=== PATIENT | male | born 1970 | race Caucasian/White ===

== ENCOUNTER 2020-06-02 17:44 | Observation (INO) ==
[2020-06-02] MEDS ORDERED: ASPIRIN CHEW 324 MG PO STA (18:26)
--- NOTE | 2020-06-02 18:40 | Emergency Department Note ---
History of Present Illness General Chief complaint: Chest Pain Stated complaint: chest pain Time Seen by Provider: 06/02/20 18:09 Source: patient Mode of arrival: ambulatory Limitations: no limitations History of Present Illness This patient comes in after having an episode of chest pain while shoveling snow. This occurred around 7:30 or 8. He happened to have a doctor's appointment today and mentioned it to him and they got an EKG were concerned that he had EKG changes. He said that it lasted briefly in the center of his chest. Only slight pain. He denies that he had any other symptoms with this he did not feel like his heart was racing but it felt like it was pounding harder. He has a bump in the right side of his chest near his breast that he says they have been following with a mammogram. He also has a lymph node that they have been following his right arm pit. He denies any shortness of breath with this he chronically has some shortness of breath there is no pain in the arm neck or back with this. No diaphoresis or nausea or vomiting. He has some chronic pain from arthritis in his right leg which he says has been checked out multiple times and is no worse or different today. No history of similar complaints. Home Medications Medication Instructions Recorded Confirmed Type acetaminophen 1,000 mg PO Q6H PRN 11/06/18 06/02/20 History celecoxib [Celebrex] 200 mg PO DAILY 06/02/20 06/02/20 History chlorthalidone 12.5 mg PO QAM 06/02/20 06/02/20 History Allergies Allergy/AdvReac Type Severity Reaction Status Date / Time ibuprofen Allergy made Verified 06/02/20 18:54 kidneys bleed bandaide AdvReac red Uncoded 06/02/20 18:49 irritated skin Past Med/Surg History Medical History (Updated 06/02/20 @ 22:18 by Griffin Mora MD) Anxiety no meds Hypertension Kidney stones Osteoarthritis Sleep apnea no device--scheduled for a sleep study 11/08/18 Surgical History History of surgical removal of pilonidal cyst History of wisdom tooth extraction Status post debridement of bone spur right heel Family History Father Family history of diabetes mellitus Uncle Family history of diabetes mellitus Other No family history of adverse response to anesthesia Social History Smoking Status: Never smoker Second Hand Exposure: Yes (father smoked); Hx Alcohol Use: Yes Alcohol type: beer, wine and hard liquor Hx Substance Use: No Preferred Language: Botswan[place] Communication Ability: Effective Instructor Painting Required: No Beliefs That Will Affect Care: None Current Living Situation: Spouse Feels Safe at Home: Yes Assistive Devices: Contacts and Glasses Immunizations: Past medical historyosteoarthritis, obstructive sleep apnea. He has kidney stones and also breast mass which they are following. He is being treated for hypertension with medication. He says that his cholesterol was m ildly elevated but is not on medications. Denies any personal cardiac history Social historydoes not smoke. Drinks very occasionally. Denies drug use. He is and lives locally with his . 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 Paternal grandfather he thinks of a heart issue he estimates in his 50s Review of Systems A total of 10 systems reviewed and were otherwise negative Physical Exam Vital Signs Vital Signs - 24 hr 06/02/20 18:02 06/02/20 18:37 06/02/20 19:00 Pulse Rate 91 H 85 Respiratory Rate 18 16 Respiratory Effort / Characteristics Non-Labored Spontaneous Respiratory Depth Normal Respiratory Pattern Regular Blood Pressure 167/99 H 165/108 H Blood Pressure Mean 121 127 Pulse Oximetry 95 95 Oxygen Delivery Method Room Air Room Air Sepsis Recent Fever Within 48 Hours No Sepsis New/Unexplained Change in Mental Status No Sepsis Action Taken by Nursing No Action Required 06/02/20 19:30 06/02/20 19:59 06/02/20 20:00 Pulse Rate 86 85 87 Respiratory Rate 18 14 16 Respiratory Effort / Characteristics Respiratory Depth Respiratory Pattern Blood Pressure 153/96 H 144/98 H 138/93 Blood Pressure Mean 115 113 108 Pulse Oximetry 97 Oxygen Delivery Method Room Air Sepsis Recent Fever Within 48 Hours Sepsis New/Unexplained Change in Mental Status Sepsis Action Taken by Nursing 06/02/20 21:00 06/02/20 21:30 Pulse Rate 86 82 Respiratory Rate 21 18 Respiratory Effort / Characteristics Respiratory Depth Respiratory Pattern Blood Pressure 120/85 123/88 Blood Pressure Mean 96 99 Pulse Oximetry 97 96 Oxygen Delivery Method Sepsis Recent Fever Within 48 Hours Sepsis New/Unexplained Change in Mental Status Sepsis Action Taken by Nursing General: Well developed well nourished not ill-appearing middle-age male who appears in no acute distress, breathing comfortably on room air. Normal speech HEENT: Normal cephalic atraumatic. Pupils are equal round and reactive to light. Sclera anicteric. Extraocular movements are intact. Oropharynx is pink with moist mucous membranes. No swelling of the mouth lips or tongue. Neck: Supple with a midline trachea. No meningeal signs or stiffness, no JVD or bruits. No Stridor. Chest: Clear to auscultation bilaterally. No wheezes or rhonchi. No increased work of breathing. Heart: Regular rate and rhythm without murmurs or gallops. Abdomen: Soft nontender, nondistended without rebound guarding or rigidity. Extremities: No cyanosis clubbing or edema. No calf tenderness or assymetry Spine/Back. Non tender to palpation. No CVA tenderness Skin: Good turgor without rashes. Neurologic exam: Cranial nerves two through 12 are intact. Motor and sensation are intact and symmetrical throughout. Course Administered Medications Discontinued Medications Aspirin (Aspirin Chew 324 Mg) 324 mg PO NOW STA Stop: 06/02/20 18:27 Last Admin: 06/02/20 18:41 Dose: 324 mg Documented by: [id number] Ioversol (Optiray 320 125ml) 120 ml IV ONCE ONE Stop: 06/02/20 19:52 Last Admin: 06/02/20 19:52 Dose: 120 ml Documented by: [id number] Potassium Chloride (Potassium Chloride Crtab 20 Meq Tabcr) 40 meq PO NOW STA Stop: 06/02/20 21:21 Last Admin: 06/02/20 21:35 Dose: 40 meq Documented by: [id number] Cosigned by: [id number] Medical Decision Making Differential Diagnosis Acute coronary syndrome, arrhythmia, musculoskeletal, GI. electrolyte or metabolic abnormality Medical Records Attestation: I reviewed the patient's medical records. Home Medications Current Medication List: was personally reviewed by me Laboratory Data Attestation: I reviewed the patient's lab results. Result diagrams: 06/02/20 16:33 06/02/20 16:33 Lab Results 06/02/20 06/02/20 06/02/20 Range/Units 16:33 16:33 16:33 WBC 6.30 (4.8-10.8) K/uL RBC 4.76 (4.7-6.1) M/uL Hgb 15.2 (14.0-18.0) g/dL Hct 43.0 (42-52) % MCV 90.3 (80-100) fL MCH 31.9 (25-34) pg MCHC 35.3 (32-36) g/dL RDW Std Deviation 41.8 (36.4-46.3) fL RDW Coeff of [place] 12.6 (11.5-14.5) % Plt Count 349 (130-400) K/uL MPV 9.1 (7.4-10.4) fL Immature Gran % (Auto) 0.3 % Neut % (Auto) 43.7 % Lymph % (Auto) 38.7 % [place] % (Auto) 12.1 % Eos % (Auto) 4.6 % Baso % (Auto) 0.6 % Neut # (Auto) 2.75 (1.4-6.5) K/uL Lymph # (Auto) 2.44 (1.2-3.4) K/uL [place] # (Auto) 0.76 H (0.11-0.59) K/uL Eos # (Auto) 0.29 (0-0.5) K/uL Baso # (Auto) 0.04 (0-0.2) K/uL Immature Gran # (Auto) 0.02 (0.00-0.02) K/uL D-Dimer 1420 H* (0-500) ug/L FEU Sodium 139 (136-145) mmol/L Potassium 3.4 L (3.5-5.1) mmol/L Chloride 104 (98-107) mmol/L Carbon Dioxide 29 (21-32) mmol/L Anion Gap 7.0 (3-11) BUN 15 (7-18) mg/dl Creatinine 1.06 (0.6-1.4) mg/dl Est Cr Clr Drug Dosing 143.3 ml/min Est GFR ( Amer) 93.7 Est GFR (Non-Af Amer) 80.9 BUN/Creatinine Ratio 13.8 (10-20) Glucose 96 (70-99) mg/dl Calcium 9.8 (8.5-10.1) mg/dl Total Bilirubin 0.6 (0.2-1) mg/dl AST 47 H (15-37) U/L ALT 54 (12-78) U/L Alkaline Phosphatase 83 (45-117) U/L Troponin I < 0.015 (0-0.045) ng/ml Total Protein 8.4 H (6.4-8.2) gm/dl Albumin 4.2 (3.4-5.0) gm/dl Globulin 4.2 H (2.5-4.0) gm/dl Albumin/Globulin Ratio 1.0 (0.9-2) Lipase 179 (73-393) U/L COVID-19 Eval Order SARS-CoV-2, RNA, NAAT (NEGATIVE) 06/02/20 06/02/20 Range/Units 21:33 21:33 WBC (4.8-10.8) K/uL RBC (4.7-6.1) M/uL Hgb (14.0-18.0) g/dL Hct (42-52) % MCV (80-100) fL MCH (25-34) pg MCHC (32-36) g/dL RDW Std Deviation (36.4-46.3) fL RDW Coeff of [place] (11.5-14.5) % Plt Count (130-400) K/uL MPV (7.4-10.4) fL Immature Gran % (Auto) % Neut % (Auto) % Lymph % (Auto) % [place] % (Auto) % Eos % (Auto) % Baso % (Auto) % Neut # (Auto) (1.4-6.5) K/uL Lymph # (Auto) (1.2-3.4) K/uL [place] # (Auto) (0.11-0.59) K/uL Eos # (Auto) (0-0.5) K/uL Baso # (Auto) (0-0.2) K/uL Immature Gran # (Auto) (0.00-0.02) K/uL D-Dimer (0-500) ug/L FEU Sodium (136-145) mmol/L Potassium (3.5-5.1) mmol/L Chloride (98-107) mmol/L Carbon Dioxide (21-32) mmol/L Anion Gap (3-11) BUN (7-18) mg/dl Creatinine (0.6-1.4) mg/dl Est Cr Clr Drug Dosing ml/min Est GFR ( Amer) Est GFR (Non-Af Amer) BUN/Creatinine Ratio (10-20) Glucose (70-99) mg/dl Calcium (8.5-10.1) mg/dl Total Bilirubin (0.2-1) mg/dl AST (15-37) U/L ALT (12-78) U/L Alkaline Phosphatase (45-117) U/L Troponin I (0-0.045) ng/ml Total Protein (6.4-8.2) gm/dl Albumin (3.4-5.0) gm/dl Globulin (2.5-4.0) gm/dl Albumin/Globulin Ratio (0.9-2) Lipase (73-393) U/L COVID-19 Eval Order Covid19 IDNow atMLAC SARS-CoV-2, RNA, NAAT NEGATIVE (NEGATIVE) Imaging Data Attestation: I personally reviewed and interpreted this imaging study as follows: My Impression: Chest x-rayno acute infiltrate, failure, pneumothorax seen Radiologist's Impression: SINGLE VIEW CHEST CLINICAL HISTORY: Atypical chest pain. FINDINGS: An AP, portable, upright chest radiograph is obtained. No prior studies are available for comparison at the time of dictation. The examination is degraded by portable technique and patient rotation. The cardiomediastinal silhouette is unremarkable. The lungs and pleural spaces are clear. No pneumothorax is seen. The bony thorax is grossly intact. IMPRESSION: No active disease in the chest. CT ANGIOGRAM OF THE CHEST CLINICAL HISTORY: Atypical chest pain. COMPARISON STUDY: Chest x-ray dated 06/02/2020. TECHNIQUE: Following the IV administration of 120 cc of Optiray 320, CT angiogram of the chest was performed from the upper abdomen to the thoracic inlet utilizing the pulmonary embolus protocol. Images are reviewed in the axial, sagittal, and coronal planes. 3-D MIPS images are created and assessed. IV contrast was administered without complication. A dose lowering technique was utilized adhering to the principles of ALARA. CT DOSE: 728.82 mGy.cm FINDINGS: Thyroid: Imaged portions of the thyroid gland are normal in size and attenuation. Thoracic aorta: The thoracic aorta is normal in caliber and demonstrates standard 3-vessel arch anatomy. No dissection is seen. Pulmonary vasculature: The pulmonary trunk is normal in caliber. There are no filling defects identified in main, lobar, or segmental pulmonary branches to suggest pulmonary embolus. Heart: The heart is normal in size and without pericardial effusion. Lungs and pleural spaces: Evaluation of the lung parenchyma is modestly degraded by motion artifact. There is no airspace consolidation or pleural effusion. Minimal secretions are noted in the trachea. There is mild diffuse peribronchial thickening. A 4 mm right lower lobe pulmonary nodule is seen on image #101. A 4 mm right middle lobe pulmonary nodule is seen on image #91, and a 2 mm right middle lobe nodule is seen on image #113. A 3 mm pleural-based nodule at the le ft lung base as seen on image #50, and a 4 mm left lower lobe nodule is seen on image #90. Mediastinum: There is no mediastinal lymphadenopathy. Sara: Clear. Axillae: There is no axillary lymphadenopathy. Upper abdomen: The liver is enlarged and steatotic. There is a small hiatal hernia. Skeletal structures: No lytic or blastic bony lesions are seen. IMPRESSION: 1. There is no evidence of pulmonary embolus in the main, lobar, or segmental pulmonary arteries. 2. There is no airspace consolidation or pleural effusion. 3. Mild diffuse peribronchial thickening suggests bronchitis/reactive airway disease. 4. Scattered pulmonary nodules measuring up to 4 mm are pathologically indeterminant but of low suspicion. These can be followed as per the Fleischner criteria if clinically warranted. See below. 5. Hepatomegaly and hepatic steatosis. ECG Data Attestation: I personally reviewed and interpreted this ECG as follows: Indication: + chest pain Rate (beats per minute): 85 Rhythm: + normal sinus ECG Intervals/blocks: + Normal QRS, + Normal QT and + Normal VT ECG [place]: + Normal ECG ST segments: + T-wave inversions (Nonspecific T waves that are more flattened than previous EKG when they were inverted in the anterolateral) ECG Findings: no PACs and no PVCs Comparison ECG Date: from (Earlier today in the doctor's office) Change: the following changes noted (T waves are no longer inverted but more flattened) MDM Narrative This patient comes in as described above he is asymptomatic at present but had some chest pain while shoveling. His doctor's office was concerned as his EKG did show T wave inversions mostly anteriorly which were apparently new compared to old. We did repeat the EKG here and the T wave inversions for the most part have resolved there more just flattened with an inversion in V3. Multiple blood testing was obtained he was given aspirin 324 mg chewable. Chest x-ray was obtained. He was reassessed frequently. Chest x-ray was clear and did not show congestive heart failure or pneumothorax. His EKG has some nonspecific T wave abnormalities but does actually look better than the one in the office. Troponin is negative. He has no signal electrolyte or metabolic abnormality. His D-dimer was moderately elevated at 1400 so I ordered a CT angiogram PE. I did explain the risk and the benefits of the patient and he freely consented. The CAT scan was obtained and shows no evidence of pulmonary embolism. He has r emained comfortable. There is no airspace consolidation or pleural effusion. There is diffuse peribronchial thickening suggestive of bronchitis/reactive airway disease. He does have some low suspicion pulmonary nodules. Given his EKG changes I do think he needs to be admitted/observed to rule out a cardiac event. He is willing to stay in the hospital. I did discuss case with Dr. Moreland and also ordered Covid testing given that he will be admitted. Covid testing was negative. Continuous cardiac monitoring: An order was placed in the EMR for continuous cardiac monitoring. The patient was noted to be in normal sinus rhythm with a rate of 91. Impression & Plan Chest pain, COVID-19 ruled out by laboratory testing, Acute electrocardiogram changes, Family history of coronary artery disease Discharge Plan Visit Data Chief Complaint: Chest Pain Stated Complaint: chest pain ED Provider: Griffin Mora Discharge Problem: Chest pain, COVID-19 ruled out by laboratory testing, Acute electrocardiogram changes, Family history of coronary artery disease Forms Stand Alone Forms: My [facility] Prescriptions Prescriptions: No Action acetaminophen 500 mg Tablet 1,000 mg PO Q6H PRN (Reason: Pain) RF: 0 celecoxib [Celebrex] 200 mg capsule 200 mg PO DAILY RF: 0 chlorthalidone 25 mg tablet 12.5 mg PO QAM RF: 0 Discharge Problem: Chest pain Qualifiers: Chest pain type: precordial pain Qualified Code(s): R07.2 - Precordial pain
[2020-06-02 18:45] LABS: Basophils # (auto) 0.04 K/uL (0-0.2); Basophils % (auto) 0.6 %; Eosinophils # (auto) 0.29 K/uL (0-0.5); Eosinophils % (auto) 4.6 %; Hemoglobin 15.2 g/dL (14.0-18.0); Immature Granulocytes # (auto) 0.02 K/uL (0.00-0.02); Immature Granulocytes % (auto) 0.3 %; Lymphocytes # (auto) 2.44 K/uL (1.2-3.4); Lymphocytes % (auto) 38.7 %; Mean Corpuscular Hemoglobin 31.9 pg (25-34); Mean Corpuscular Hgb Conc 35.3 g/dL (32-36); Mean Corpuscular Volume 90.3 fL (80-100); Mean Platelet Volume 9.1 fL (7.4-10.4); Monocytes # (auto) 0.76 K/uL (0.11-0.59); Monocytes % (auto) 12.1 %; Neutrophils # (auto) 2.75 K/uL (1.4-6.5); Neutrophils % (auto) 43.7 %; Platelet Count 349 K/uL (130-400); RDW Coefficient of Variation 12.6 % (11.5-14.5); RDW Standard Deviation 41.8 fL (36.4-46.3); Red Blood Count 4.76 M/uL (4.7-6.1)
[2020-06-02 19:05] LABS: Alanine Aminotransferase 54 U/L (12-78); Albumin Level 4.2 gm/dl (3.4-5.0); Aspartate Aminotransferase 47 U/L (15-37); BUN Creatinine Ratio 13.8 (10-20); Blood Urea Nitrogen 15 mg/dl (7-18); Calcium 9.8 mg/dl (8.5-10.1); Carbon Dioxide 29 mmol/L (21-32); Chloride 104 mmol/L (98-107); Creatinine Clr Calc Pharmacy 143.3 ml/min; Est GFR (African American) 93.7; Est GFR (Non-African American) 80.9; Glucose 96 mg/dl (70-99); Lipase 179 U/L (73-393); Potassium 3.4 mmol/L (3.5-5.1); Sodium 139 mmol/L (136-145)
[2020-06-02 19:06] LABS: D Dimer 1420 ug/L FEU (0-500)
--- NOTE | 2020-06-02 19:06 | XRay Report ---
SINGLE VIEW CHEST CLINICAL HISTORY: Atypical chest pain. FINDINGS: An AP, portable, upright chest radiograph is obtained. No prior studies are available for c omparison at the time of dictation. The examination is degraded by portable technique and patient rot ation. The cardiomediastinal silhouette is unremarkable. The lungs and pleural spaces are clear. No pneumothorax is seen. The bony thorax is grossly intact. IMPRESSION: No active disease in the chest. ACT 112: Negative or not required by law. Electronically signed by: Farrukh Guerrero M.D. 06/02/2020 7:04 PM
[2020-06-02 19:10] LABS: Alkaline Phosphatase 83 U/L (45-117); Bilirubin,Total 0.6 mg/dl (0.2-1); Globulin 4.2 gm/dl (2.5-4.0); Total Protein 8.4 gm/dl (6.4-8.2); Troponin I < 0.015 ng/ml (0-0.045)
[2020-06-02] MEDS ORDERED: OPTIRAY 320 125ml IV ONE (19:51)
--- NOTE | 2020-06-02 20:14 | CT Scan Report ---
CT ANGIOGRAM OF THE CHEST CLINICAL HISTORY: Atypical chest pain. COMPARISON STUDY: Chest x-ray dated 06/02/2020. TECHNIQUE: Following the IV administration of 120 cc of Optiray 320, CT angiogram of the chest was pe rformed from the upper abdomen to the thoracic inlet utilizing the pulmonary embolus protocol. Images are reviewed in the axial, sagittal, and coronal planes. 3-D MIPS images are created and assessed. I V contrast was administered without complication. A dose lowering technique was utilized adhering to the principles of ALARA. CT DOSE: 728.82 mGy.cm FINDINGS: Thyroid: Imaged portions of the thyroid gland are normal in size and attenuation. Thoracic aorta: The thoracic aorta is normal in caliber and demonstrates standard 3-vessel arch anato my. No dissection is seen. Pulmonary vasculature: The pulmonary trunk is normal in caliber. There are no filling defects identif ied in main, lobar, or segmental pulmonary branches to suggest pulmonary embolus. Heart: The heart is normal in size and without pericardial effusion. Lungs and pleural spaces: Evaluation of the lung parenchyma is modestly degraded by motion artifact. There is no airspace consolidation or pleural effusion. Minimal secretions are noted in the trachea. There is mild diffuse peribronchial thickening. A 4 mm right lower lobe pulmonary nodule is seen on i mage #101. A 4 mm right middle lobe pulmonary nodule is seen on image #91, and a 2 mm right middle lo be nodule is seen on image #113. A 3 mm pleural-based nodule at the left lung base as seen on image # 50, and a 4 mm left lower lobe nodule is seen on image #90. Mediastinum: There is no mediastinal lymphadenopathy. Sara: Clear. Axillae: There is no axillary lymphadenopathy. Upper abdomen: The liver is enlarged and steatotic. There is a small hiatal hernia. Skeletal structures: No lytic or blastic bony lesions are seen. IMPRESSION: 1. There is no evidence of pulmonary embolus in the main, lobar, or segmental pulmonary arteries. 2. There is no airspace consolidation or pleural effusion. 3. Mild diffuse peribronchial thickening suggests bronchitis/reactive airway disease. 4. Scattered pulmonary nodules measuring up to 4 mm are pathologically indeterminant but of low suspi cion. These can be followed as per the Fleischner criteria if clinically warranted. See below. 5. Hepatomegaly and hepatic steatosis. Please refer to below summary of Fleischner criteria recommendations for follow-up of incidental CT n odules (Cl Ford, Guidelines for management of small pulmonary nodules detected on CT scans: A sta tement from the Fleischner Society, Radiology 237: [id number].) SOLID NODULES Solitary nodule size: <6 mm * low risk patients: no follow-up needed * high risk patients: optional CT at 12 months Solitary nodule size: 6-8 mm * low risk patients: follow-up at 6-12 months, then consider further follow-up at 18-24 months * high risk patients: initial follow-up CT at 6-12 months and then at 18-24 months if no change Solitary nodule size: >8 mm * either low or high risk patients - consider follow-up CT at 3 months, and/or CT-PET, and/or biopsy Multiple nodules size: <6 mm * low risk patients: no routine follow-up * high risk patients: optional CT at 12 months Multiple nodules size: 6-8 mm * low risk patients: follow-up at 3-6 months, then consider further follow-up at 18-24 months * high risk patients: follow-up at 3-6 months, then at 18-24 months if no change Multiple nodules size: >8 mm * low risk patients: follow-up at 3-6 months, then consider further follow-up at 18-24 months * high risk patients: follow-up at 3-6 months, then at 18-24 months if no change Note: newly detected indeterminate nodule in persons 35 years of age or older. * low risk patients: minimal or absent history of smoking and/or other known risk factors * high risk patients: history of smoking or of other known risk factors (e.g. first degree relative with lung cancer, or exposure to asbestos, radon, uranium) * if a nodule up to 8 mm is partly solid or is ground glass further follow-up is required after 24 m onths to exclude possible slow growing adenocarcinoma (RADHA) SUBSOLID NODULES Solitary pure ground-glass nodule * nodule size <6 mm - no CT follow-up required * nodule size >=6 mm - follow-up CT at 6-12 months, then every 2 years until 5 years Solitary part-solid nodule * nodule size <6 mm - no CT follow-up required * nodule size >=6 mm - follow-up CT at 3-6 months. If unchanged, and solid component remains <6 mm, then annual follow-up for 5 years Multiple subsolid nodules * nodule size <6 mm - follow-up CT at 3-6 months, consider further follow-up at 2 and 4 years if sta ble * nodule size >=6 mm - follow-up CT at 3-6 months, subsequent management based on the most suspiciou s nodule(s) ACT 112: Negative or not required by law. Electronically signed by: Farrukh Guerrero M.D. 06/02/2020 8:13 PM
[2020-06-02] MEDS ORDERED: POTASSIUM CHLORIDE CRTAB 20 MEQ TABCR PO STA (21:20)
--- NOTE | 2020-06-02 22:05 | History & Physical Report ---
Date of Service June 02, 2020 Assessment & Plan (1) Chest pain: Musculoskeletal given reproducibility on exam Rule out ACS given risk factors and ischemic changes on outpatient EKG. hypertension, stable Reactive bronchitis on CT, patient wondering if possibly related to perceived high CPAP pressures prediabetes, outpatient hemoglobin A1c of 5.06 November 2019 Hypokalemia secondary diuretic Rx past tobacco abuse OBS PCU Aspirin for CAD prevention until ACS ruled out Follow troponin Cardiology consult in a.m. RE chest pain, abnormal EKG N.p.o. after midnight until patient seen by cardiology Patient requesting for CT results to be relayed to [facility] sleep specialist. Replace potassium, hold home diuretic for now DVT prophylaxis per Lovenox subcu Full code Text document was generated using [employer] voice recognition software. It may contain grammatical or spelling errors. Kindly contact undersigned for clarification of any documentation item in question. History of Present Illness Chief Complaint: Abnormal EKG Primary Care Provider: Doe Golden DO History obtained from patient and records. Medical history significant for hypertension, SAMANTA on CPAP, GERD, prediabetes, past tobacco abuse, mood disorder, urolithiasis. Patient was shoveling snow this morning when he experienced transient substernal tightness without radiation without cough, S OB symptoms. No prior episodes in the past. Patient seen at PCP's office today for possible right axillary node complaint. EKG done after patient mentioned transient substernal pain complaints. EKG showed T wave inversions anteroseptal leads. Patient sent to the ER for evaluation. Medical History as above Family History : DM, heart disease, black lung Personal/Social history : Past tobacco abuse, no EtOH intake, [employer] [facility] [facility] work Allergies Allergy/AdvReac Type Severity Reaction Status Date / Time ibuprofen Allergy made Verified 06/02/20 18:54 kidneys bleed bandaide AdvReac red Uncoded 06/02/20 18:49 irritated skin Home Medications Medication Instructions Recorded Confirmed Type acetaminophen 1,000 mg PO Q6H PRN 11/06/18 06/02/20 History celecoxib [Celebrex] 200 mg PO DAILY 06/02/20 06/02/20 History chlorthalidone 12.5 mg PO QAM 06/02/20 06/02/20 History Past Med/Surg History Medical History (Updated 06/02/20 @ 22:18 by Griffin Mora MD) Anxiety no meds Hypertension Kidney stones Osteoarthritis Sleep apnea no device--scheduled for a sleep study 11/08/18 Surgical History History of surgical removal of pilonidal cyst History of wisdom tooth extraction Status post debridement of bone spur right heel Family History Father Family history of diabetes mellitus Uncle Family history of diabetes mellitus Other No family history of adverse response to anesthesia Social History Smoking Status: Former smoker Second Hand Exposure: No; Hx Alcohol Use: Yes Alcohol type: wine Hx Substance Use: No Preferred Language: Portuguese Communication Ability: Effective Service Aide Required: No Beliefs That Will Affect Care: None Current Living Situation: Spouse Feels Safe at Home: Yes Safety Concerns: Feels Safe At This Time Assistive Devices: Contacts and Glasses Review of Systems Review of Systems: As per HPI, all 10 systems reviewed, all other ROS negative Physical Exam Physical Exam: GENERAL: Slightly uncomfortable, slightly anxious, obese, pleasant, no respiratory distress SKIN: Normal color, warm HEENT: Pray palpebral conjunctivae, no ptosis, dry buccal mucosa NECK : Supple, short neck, no tenderness CHEST : CTA, anterior chest wall tenderness HEART : RRR, no obvious murmurs ABDOMEN: Some distention, nontender EXTREMITIES : No LE swelling/tenderness, no other conspicuous deformities noted NEUROLOGIC : Coherent, no facial asymmetry, no other gross focality Results & Data Results & Data ([facility]) Vital Signs (Past 12 Hours) Vital Signs Pulse Resp BP Pulse Ox 06/02/20 21:30 82 18 123/88 96 06/02/20 21:00 86 21 120/85 97 06/02/20 20:00 87 16 138/93 97 06/02/20 19:59 85 14 144/98 H 06/02/20 19:30 86 18 153/96 H 06/02/20 19:00 85 16 165/108 H 06/02/20 18:37 95 06/02/20 18:02 91 H 18 167/99 H 95 Laboratory Results Laboratory Results WBC 6.30 K/uL (4.8-10.8) 06/02/20 16:33 RBC 4.76 M/uL (4.7-6.1) 06/02/20 16:33 Hgb 15.2 g/dL (14.0-18.0) 06/02/20 16:33 Hct 43.0 % (42-52) 06/02/20 16:33 MCV 90.3 fL (80-100) 06/02/20 16:33 MCH 31.9 pg (25-34) 06/02/20 16:33 MCHC 35.3 g/dL (32-36) 06/02/20 16:33 RDW Std Deviation 41.8 fL (36.4-46.3) 06/02/20 16:33 RDW Coeff of [place] 12.6 % (11.5-14.5) 06/02/20 16: Plt Count 349 K/uL (130-400) 06/02/20 16:33 MPV 9.1 fL (7.4-10.4) 06/02/20 16:33 Immature Gran % (Auto) 0.3 % 06/02/20 16:33 Neut % (Auto) 43.7 % 06/02/20 16:33 Lymph % (Auto) 38.7 % 06/02/20 16:33 [place] % (Auto) 12.1 % 06/02/20 16:33 Eos % (Auto) 4.6 % 06/02/20 16:33 Baso % (Auto) 0.6 % 06/02/20 16:33 Neut # (Auto) 2.75 K/uL (1.4-6.5) 06/02/20 16:33 Lymph # (Auto) 2.44 K/uL (1.2-3.4) 06/02/20 16:33 [place] # (Auto) 0.76 K/uL (0.11-0.59) H 06/02/20 16:33 Eos # (Auto) 0.29 K/uL (0-0.5) 06/02/20 16:33 Baso # (Auto) 0.04 K/uL (0-0.2) 06/02/20 16:33 Immature Gran # (Auto) 0.02 K/uL (0.00-0.02) 06/02/20 16:33 D-Dimer 1420 ug/L FEU (0-500) H* 06/02/20 16:33 Sodium 139 mmol/L (136-145) 06/02/20 16:33 Potassium 3.4 mmol/L (3.5-5.1) L 06/02/20 16:33 Chloride 104 mmol/L (98-107) 06/02/20 16:33 Carbon Dioxide 29 mmol/L (21-32) 06/02/20 16:33 Anion Gap 7.0 (3-11) 06/02/20 16:33 BUN 15 mg/dl (7-18) 06/02/20 16:33 Creatinine 1.06 mg/dl (0.6-1.4) 06/02/20 16:33 Est Cr Clr Drug Dosing 143.3 ml/min 06/02/20 16:33 Est GFR ( Amer) 93.7 06/02/20 16:33 Est GFR (Non-Af Amer) 80.9 06/02/20 16:33 BUN/Creatinine Ratio 13.8 (10-20) 06/02/20 16:33 Glucose 96 mg/dl (70-99) 06/02/20 16:33 Calcium 9.8 mg/dl (8.5-10.1) 06/02/20 16:33 Total Bilirubin 0.6 mg/dl (0.2-1) 06/02/20 16:33 AST 47 U/L (15-37) H 06/02/20 16:33 ALT 54 U/L (12-78) 06/02/20 16:33 Alkaline Phosphatase 83 U/L (45-117) 06/02/20 16:33 Troponin I < 0.015 ng/ml (0-0.045) 06/02/20 16:33 Total Protein 8.4 gm/dl (6.4-8.2) H 06/02/20 16:33 Albumin 4.2 gm/dl (3.4-5.0) 06/02/20 16:33 Globulin 4.2 gm/dl (2.5-4.0) H 06/02/20 16:33 Albumin/Globulin Ratio 1.0 (0.9-2) 06/02/20 16:33 Lipase 179 U/L (73-393) 06/02/20 16:33 COVID-19 Eval Order Covid19 IDNow [facility] 06/02/20 21:[address] chest: 1. There is no evidence of pulmonary embolus in the main, lobar, or segmental pulmonary arteries. 2. There is no airspace consolidation or pleural effusion. 3. Mild diffuse peribronchial thickening suggests bronchitis/reactive airway disease. 4. Scattered pulmonary nodules measuring up to 4 mm are pathologically indeterminant but of low suspicion. These can be followed as per the Fleischner criteria if clinically warranted. See below. 5. Hepatomegaly and hepatic steatosis. EKG as per my interpretation : Rate 90, NSR, normal axis, diffuse T wave abnormalities (1) Chest pain Chest pain type: precordial pain Qualified Code(s): R07.2 - Precordial pain
[2020-06-02 22:21] LABS: Magnesium 2.3 mg/dl (1.8-2.4)
[2020-06-02] MEDS ORDERED: ACETAMINOPHEN 325 MG TAB PO PRN (23:17)
[2020-06-02] MEDS ORDERED: MoRPHine SULFATE 4 MG/ML 1 ML CARP\\VIAL IV PRN (23:17)
[2020-06-02] MEDS ORDERED: PROMETHAZINE HCL 12.5 MG in SODIUM CHLORIDE 0.9% 50 ML IV PRN (23:17)
[2020-06-02] MEDS ORDERED: NITROGLYCERIN SL 0.4 MG/TAB TAB SL PRN (23:17)
[2020-06-02] MEDS ORDERED: LORazepam 0.5 MG/1 ML VIAL IV PRN (23:17)
[2020-06-03] MEDS ORDERED: POTASSIUM CHLORIDE 40 MEQ in SODIUM CHLORIDE 0.9% 1000ML 1,000 ML IV SCH
[2020-06-03 04:55] LABS: Basophils # (auto) 0.02 K/uL (0-0.2); Basophils % (auto) 0.4 %; Eosinophils % (auto) 5.3 %; Hematocrit (blood only) 37.9 % (42-52); Hemoglobin 13.1 g/dL (14.0-18.0); Immature Granulocytes # (auto) 0.02 K/uL (0.00-0.02); Immature Granulocytes % (auto) 0.4 %; Lymphocytes % (auto) 40.4 %; Mean Corpuscular Hemoglobin 31.5 pg (25-34); Mean Corpuscular Hgb Conc 34.6 g/dL (32-36); Mean Corpuscular Volume 91.1 fL (80-100); Mean Platelet Volume 8.7 fL (7.4-10.4); Monocytes % (auto) 10.5 %; Neutrophils # (auto) 2.45 K/uL (1.4-6.5); Platelet Count 282 K/uL (130-400); RDW Coefficient of Variation 12.7 % (11.5-14.5); Red Blood Count 4.16 M/uL (4.7-6.1); White Blood Count 5.69 K/uL (4.8-10.8)
[2020-06-03 05:14] LABS: Partial Thromboplastin Ratio 1.1; Partial Thromboplastin Time 28.2 Seconds (21.0-31.0)
[2020-06-03 05:23] LABS: BUN Creatinine Ratio 15.8 (10-20); Blood Urea Nitrogen 14 mg/dl (7-18); Calcium 8.9 mg/dl (8.5-10.1); Carbon Dioxide 31 mmol/L (21-32); Chloride 109 mmol/L (98-107); Creatinine Clr Calc Pharmacy 127.9 ml/min; Est GFR (African American) 112.7; Est GFR (Non-African American) 97.2; Glucose 94 mg/dl (70-99); Potassium 3.7 mmol/L (3.5-5.1); Sodium 143 mmol/L (136-145)
[2020-06-03 05:28] LABS: Chol HDL Ratio 6; Cholesterol 181 mg/dl (0-200); HDL Cholesterol 31 mg/dl; LDL Cholesterol Calculated 112 mg/dl; Triglycerides 192 mg/dl (0-150); Troponin I < 0.015 ng/ml (0-0.045); VLDL Cholesterol 38 mg/dl
[2020-06-03] MEDS ORDERED: ENOXAPARIN INJ 40 MG/0.4 ML SYR SQ SCH (09:00)
[2020-06-03] MEDS ORDERED: ASPIRIN 81 MG ECTAB PO SCH (09:00)
--- NOTE | 2020-06-03 09:23 | Cardiology Consultation ---
Date of Consultation June 03, 2020 Assessment & Plan (1) Chest pain: Patient referred after noting atypical chest pain sharp jabbing discomfort while shoveling snow. EKG with biphasic anterior T wave changes on routine testing hours later. Evaluation has not revealed any signs of ischemia or injury with normal LV systolic function as well as normal stress testing as above Recommendations: Patient should have close clinical follow-up with primary care physician to address cardiovascular risk factors including obesity, hypertension and dyslipidemia. Add potassium supplement to chlorthalidone Patient report any new symptoms or complaints (2) Acute electrocardiogram changes: Suspect may be hypokalemia induced. Recommendations as above History of Present Illness Reason for Consultation: Chest Pain Requesting Physician: Dr Gamboa Attending Physician: Hellen Gamboa MD History of Present Illness Patient is a 49-year-old male without prior history of cardiac disease with underlying and ongoing medical issues which include 1. Obesity 2. Obstructive sleep apnea on CPAP supplementation 3. Hypertension 4. Dyslipidemia Patient is referred having been admitted last evening after outpatient visit routinely scheduled to evaluate right axillary lymph node. Patient noted at appointment episodes of sharp and retrosternal chest discomfort brief in nature while shoveling snow. No sustained discomfort. No tachypalpitations no syncope. No orthopnea worsening peripheral edema. No prior history of similar symptoms. Chest wall mildly tender to palpation on presentation. He denies history of rheumatic fever scarlet fever renal or hepatic disease other than renal lithiasis. No recent fevers chills or unexplained infections. No bleeding difficulties. No melena medication dysuria hematuria. Notes weight is trended upwards over the past several months due to reduced activities. Continues to use CPAP faithfully EKG done as an outpatient demonstrated biphasic T waves in anterior leads EKG this morning reveals sinus rhythm with occasional ventricular ectopic beats no ST segment abnormalities Allergies Allergy/AdvReac Type Severity Reaction Status Date / Time ibuprofen Allergy made Verified 06/02/20 18:54 kidneys bleed bandaide AdvReac red Uncoded 06/02/20 18:49 irritated skin Home Medications Medication Instructions Recorded Confirmed Type acetaminophen 1,000 mg PO Q6H PRN 11/06/18 06/02/20 History celecoxib [Celebrex] 200 mg PO DAILY 06/02/20 06/02/20 History chlorthalidone 12.5 mg PO QAM 06/02/20 06/02/20 History Patient History Medical History Anxiety no meds Hypertension Kidney stones Osteoarthritis Sleep apnea no device--scheduled for a sleep study 11/08/18 Surgical History History of surgical removal of pilonidal cyst History of wisdom tooth extraction Status post debridement of bone spur right heel Family History Father Family history of diabetes mellitus Uncle Family history of diabetes mellitus Other No family history of adverse response to anesthesia Social History Smoking Status: Former smoker Second Hand Exposure: No; Hx Alcohol Use: Yes Alcohol type: wine Hx Substance Use: No Preferred Language: Kinyarwanda Communication Ability: Effective 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 Beliefs That Will Affect Care: None Current Living Situation: Spouse Feels Safe at Home: Yes Safety Concerns: Feels Safe At This Time Assistive Devices: None Review of Systems Review of Systems: All systems reviewed & are unremarkable except as noted in HPI & below Physical Exam Constitutional: WD/WN, vitals as above + obese; not in distress Eyes: PERRL, conjunctivae normal, anicteric sclerae EOM intact bilaterally ENMT: external ear and nose normal, oropharynx normal Neck: trachea midline, no thyromegaly + thick neck Respiratory: normal respiratory effort, lungs clear to auscultation Cardiovascular: Rate/Rhythm: regular rate and regular rhythm Heart Sounds: normal S1 and normal S2; no gallop and no murmur Palpation: normal PMI Vessels: normal carotid upstroke and radial pulses present; no JVD and no carotid bruit Extremities: no edema Gastrointestinal (Abdomen): normal bowel sounds, soft, nontender, no hepatosplenomegaly Musculoskeletal: no cyanosis or clubbing, extremities motor strength 5/5 Skin: no rashes, warm and dry Neurologic: PERRL, EOMI, accommodation nl, no face palsy, no dysarthria Psychiatric: Orientation: alert and oriented x 3 Affect: + depressed affect Results & Data ([facility]) Vital Signs (Past 12 Hours) Vital Signs Temp Pulse Pulse Resp BP BP Pulse Ox 06/03/20 07:51 36.5 C 79 20 123/86 93 06/03/20 04:00 36.5 C 82 12 129/94 94 06/03/20 00:00 79 16 96 06/02/20 23:26 36.7 C 87 20 139/87 97 06/02/20 23:17 36.7 C 87 20 139/87 97 06/02/20 22:30 80 15 129/81 92 06/02/20 22:00 78 20 132/97 96 06/02/20 21:30 82 18 123/88 96 Pulse Ox 06/03/20 07:51 06/03/20 04:00 06/03/20 00:00 06/02/20 23:26 06/02/20 23:17 97 06/02/20 22:30 06/02/20 22:00 06/02/20 21:30 Laboratory Results Laboratory Results - last 24 hr 06/02/20 06/02/20 06/02/20 16:33 16:33 16:33 WBC 6.30 RBC 4.76 Hgb 15.2 Hct 43.0 MCV 90.3 MCH 31.9 MCHC 35.3 RDW Std Deviation 41.8 RDW Coeff of [place] 12.6 Plt Count 349 MPV 9.1 Immature Gran % (Auto) 0.3 Neut % (Auto) 43.7 Lymph % (Auto) 38.7 [place] % (Auto) 12.1 Eos % (Auto) 4.6 Baso % (Auto) 0.6 Neut # (Auto) 2.75 Lymph # (Auto) 2.44 [place] # (Auto) 0.76 H Eos # (Auto) 0.29 Baso # (Auto) 0.04 Immature Gran # (Auto) 0.02 APTT PTT Ratio D-Dimer 1420 H* Sodium 139 Potassium 3.4 L Chloride 104 Carbon Dioxide 29 Anion Gap 7.0 BUN 15 Creatinine 1.06 Est Cr Clr Drug Dosing 143.3 Est GFR ( Amer) 93.7 Est GFR (Non-Af Amer) 80.9 BUN/Creatinine Ratio 13.8 Glucose 96 Calcium 9.8 Magnesium 2.3 Total Bilirubin 0.6 AST 47 H ALT 54 Alkaline Phosphatase 83 Troponin I < 0.015 Total Protein 8.4 H Albumin 4.2 Globulin 4.2 H Albumin/Globulin Ratio 1.0 Triglycerides Cholesterol LDL Cholesterol, Calc VLDL Cholesterol, Calc HDL Cholesterol Cholesterol/HDL Ratio Lipase 179 Nasal Screen MRSA (PCR) COVID-19 Eval Order SARS-CoV-2, RNA, NAAT 06/02/20 06/02/20 06/02/20 21:33 21:33 23:15 WBC RBC Hgb Hct MCV MCH MCHC RDW Std Deviation RDW Coeff of [place] Plt Count MPV Immature Gran % (Auto) Neut % (Auto) Lymph % (Auto) [place] % (Auto) Eos % (Auto) Baso % (Auto) Neut # (Auto) Lymph # (Auto) [place] # (Auto) Eos # (Auto) Baso # (Auto) Immature Gran # (Auto) APTT PTT Ratio D-Dimer Sodium Potassium Chloride Carbon Dioxide Anion Gap BUN Creatinine Est Cr Clr Drug Dosing Est GFR ( Amer) Est GFR (Non-Af Amer) BUN/Creatinine Ratio Glucose Calcium Magnesium Total Bilirubin AST ALT Alkaline Phosphatase Troponin I Total Protein Albumin Globulin Albumin/Globulin Ratio Triglycerides Cholesterol LDL Cholesterol, Calc VLDL Cholesterol, Calc HDL Cholesterol Cholesterol/HDL Ratio Lipase Nasal Screen MRSA (PCR) Negative COVID-19 Eval Order Covid19 [facility]Now [facility] SARS-CoV-2, RNA, NAAT NEGATIVE 06/03/20 06/03/20 06/03/20 04:41 04:41 04:50 WBC 5.69 RBC 4.16 L Hgb 13.1 L Hct 37.9 L MCV 91.1 MCH 31.5 MCHC 34.6 RDW Std Deviation 42.0 RDW Coeff of [place] 12.7 Plt Count 282 MPV 8.7 Immature Gran % (Auto) 0.4 Neut % (Auto) 43.0 Lymph % (Auto) 40.4 [place] % (Auto) 10.5 Eos % (Auto) 5.3 Baso % (Auto) 0.4 Neut # (Auto) 2.45 Lymph # (Auto) 2.30 [place] # (Auto) 0.60 H Eos # (Auto) 0.30 Baso # (Auto) 0.02 Immature Gran # (Auto) 0.02 APTT 28.2 PTT Ratio 1.1 D-Dimer Sodium 143 Potassium 3.7 Chloride 109 H Carbon Dioxide 31 Anion Gap 3.0 BUN 14 Creatinine 0.91 Est Cr Clr Drug Dosing 127.9 Est GFR ( Amer) 112.7 Est GFR (Non-Af Amer) 97.2 BUN/Creatinine Ratio 15.8 Glucose 94 Calcium 8.9 Magnesium Total Bilirubin AST ALT Alkaline Phosphatase Troponin I < 0.015 Total Protein Albumin Globulin Albumin/Globulin Ratio Triglycerides 192 H Cholesterol 181 LDL Cholesterol, Calc 112 VLDL Cholesterol, Calc 38 HDL Cholesterol 31 Cholesterol/HDL Ratio 6 Lipase Nasal Screen MRSA (PCR) COVID-19 Eval Order SARS-CoV-2, RNA, NAAT Diagnostic Findings Stress echocardiogram 06/03/2020 Patient exercised for 6 minutes and 30 seconds on a standard Harley protocol and achieved greater than 85% age-predicted maximal heart rate without cardiac symptoms. No stress-induced ischemia by EKG or echocardiographic criteria Baseline EKG revealed sinus rhythm with occasional ventricular ectopic beats LV systolic function is normal (1) Chest pain Chest pain type: precordial pain Qualified Code(s): R07.2 - Precordial pain
--- NOTE | 2020-06-03 12:29 | Communication Note ---
Date of Service: June 03, 2020 pt admitted with atypical chest pain -sharp jabbing discomfort on chest wall ( reproducible with palpation ) while shoveling snow yesterday . had minor EKG changes on admission Family hx of CAD : Father had CABG at age 60's /Paternal Grandfather of heart disease in his 50's ) has been symptoms free since admission appreciate input from Cardiology Cardiac stress test today : stress Echo today : negative for stress inducible ischemia EF 60-65% no valvular disease Resting wall motion normal . stress wall motion : appropriate increase in left ventricular systolic function and decrease in cavity size . pt is stable to be discharged home today asked not to take Celecoxib as noted to have increase risk of coronary artery disease with GLORIA-2 inhibitors . can take Tylenol as needed for arthritis pain . patient is asked to take low dose aspirin 81 mg daily for future heart attack and stroke prophylaxis need close follow up with family physician to reduce future risk for CAD - obesity , HTN , dyslipidemia HTN : on chlorthalidone , added potassium supplement transient EKG changes possible due to electrolyte imbalance ( hypokalemia ) pt will be discharged home later today Hospital follow up scheduled with [facility] on 06/09/2020 Hellen Gamboa MD
--- NOTE | 2020-06-03 15:53 | Electrocardiogram Report ---
Test Reason : Blood Pressure : / mmHG Vent. Rate : 085 BPM Atrial Rate : 085 BPM P-R Int : 174 ms QRS Dur : 100 ms QT Int : 428 ms P-R-T Axes : 030 000 004 degrees QTc Int : 509 ms Sinus rhythm with Premature ventricular complexes Prolonged QT Abnormal ECG No previous ECGs available Confirmed by Sukhdeep Barillas ([id number]) on 06/03/2020 3:53:11 PM Referred By: Doe Golden Confirmed By:Sukhdeep Barillas
--- NOTE | 2020-06-03 16:02 | Discharge Summary ---
Date of Service June 03, 2020 Admission HPI Per Admitting Provider History obtained from patient and records. Medical history significant for hypertension, SAMANTA on CPAP, GERD, prediabetes, past tobacco abuse, mood disorder, urolithiasis. Patient was shoveling snow this morning when he experienced transient substernal tightness without radiation without cough, S OB symptoms. No prior episodes in the past. Patient seen at PCP's office today for possible right axillary node complaint. EKG done after patient mentioned transient substernal pain complaints. EKG showed T wave inversions anteroseptal leads. Patient sent to the ER for evaluation. Medical History as above Family History : DM, heart disease, black lung Personal/Social history : Past tobacco abuse, no EtOH intake, [employer] work Principal Diagnosis Chest pain-non cardiac -negative cardiac stress test possible musculoskeletal pain Hypertension Family history for coronary heart disease Discharge Data Allergies Allergy/AdvReac Type Severity Reaction Status Date / Time ibuprofen Allergy made Verified 06/02/20 18:54 kidneys bleed bandaide AdvReac red Uncoded 06/02/20 18:49 irritated skin Consultations 06/02/20 23:17 Consult Cardiology Routine Ordered Studies 06/02/20 19:16 CT angio chest PE protocol Stat Hospital Course (1) Chest pain: pt admitted with atypical chest pain -sharp jabbing discomfort on chest wall ( reproducible with palpation ) while shoveling snow yesterday . had minor EKG changes on admission Family hx of CAD : Father had CABG at age 60's /Paternal Grandfather of heart disease in his 50's ) has been symptoms free since admission appreciate input from Cardiology Cardiac stress test today : stress Echo today : negative for stress inducible ischemia EF 60-65% no valvular disease Resting wall motion normal . stress wall motion : appropriate increase in left ventricular systolic function and decrease in cavity size . pt is stable to be discharged home today asked not to take Celecoxib as noted to have increase risk of coronary artery disease with GLORIA-2 inhibitors . can take Tylenol as needed for arthritis pain . patient is asked to take low dose aspirin 81 mg daily for future heart attack and stroke prophylaxis need close follow up with family physician to reduce future risk for CAD - obesity , HTN , dyslipidemia HTN : on chlorthalidone , added potassium supplement transient EKG changes possible due to electrolyte imbalance ( hypokalemia ) pt will be discharged home later today Hospital follow up scheduled with [facility] on 06/09/2020 Hellen Gamboa MD Total Time Total Time Spent Total Time Spent (In Minutes): 35 mins Total Time Includes: Examination of the Patient, Discharge Planning, Medication Reconciliation and Communication With Other Providers Discharge Plan Discharge Items Patient Disposition: Home - Self-Care Reason For Visit: CP Discharge Diagnosis: Chest pain-non cardiac -negative cardiac stress test possible musculoskeletal pain Hypertension Family history for coronary heart disease Activity: Resume your previous activity Non-emergency contact: Primary Care Provider Call non-emergency contact if: you have any medication questions Follow-up/Referrals: Doe Golden DO [Primary Care Provider] - 06/09/20 1:40 pm (Date & Time 06/09/2020 1:40 PM Provider Ramon Bolton DO Department [facility] ) Diet: Heart Healthy Addtl Attending Provider Instructions: Hospital follow up with Dr Ramon Bolton on 06/09/20 @1: 40pm New Medication: Aspirin 81 mg -1 tablet daily ( take with food ) potassium tablet 20meq -take 1 table daily ( to prevent low potassium level while taking you blood pressure medication -Chlorthalidone) Do not take Celecoxib -can increase risk of heart attack can take Tylenol as needed for pain /fever Heart Attack /Stroke has very strong co-relation with Genetics, you family history of heart disease put's you on higher risk group please follow up with your family physician very closely to reduce your risk factors ( obesity , hypertension , high cholesterol ) for future heart attack /heart failure /stroke - Pending Studies at Discharge: No Stand-Alone Forms: My [employer], Smoking Cessation Medications and DC Order Prescriptions: New aspirin 81 mg Tablet,Delayed Release (Dr/Ec) 81 mg PO QAM 30 Days Qty: 30 RF: 3 potassium chloride 20 mEq tablet extended release 20 meq PO DAILY 30 Days Qty: 30 RF: 3 Continued acetaminophen 500 mg Tablet 1,000 mg PO Q6H PRN (Reason: Pain) RF: 0 chlorthalidone 25 mg tablet 12.5 mg PO QAM RF: 0 Discontinued celecoxib [Celebrex] 200 mg capsule 200 mg PO DAILY RF: 0 Discharge Orders: Discharge Order (Routine); Ordered 06/03/20 Ordered By: Hellen H. Cooper Krames/Other Patient Handouts: Risk Factors for Heart Disease, Your Heart Is at Risk Admission Data Admit Date/Time: 06/02/20 22:18 Attending Provider: Hellen Gamboa Admit Provider: Tony Conrad Primary Care Provider: Doe Golden Other Providers: Fidencio Heath ; Saqib Nichols ; Blaine Cottrell ; Thong Clifton ; Emmanuel Romero ; Segundo Gomez ; Mary Villatoro ; Shanice Nieves ; Leonid Johnston Other Interventions: Discharge Summary Assessment (RN) Last Done: 06/03/20 15:02
== END 2020-06-03 15:16 | disposition home or self-care (01) ==
LOC: 1E 17:44 → ED 17:44 → 1E 22:44

== ENCOUNTER 2021-11-16 02:40 | Observation (INO) ==
[2021-11-16] MEDS ORDERED: SODIUM CHLORIDE 0.9% 500 ML IV STA (02:58)
--- NOTE | 2021-11-16 03:01 | Emergency Department Note ---
Impression & Plan Chest pain ADMIT ED Provider Note HPI: The patient is a 51-year-old male who presents emergency department chief complaint of chest "heaviness" that occurred 2 times earlier this evening. Patient states that several hours prior to arrival he awoke to go to the bathroom, he states that this time he had a sensation of anterior chest "heaviness" he states that he ignored it and went back to bed and it seemed to resolve. Patient states he later awoke and had another episode of this shortly prior to arrival to the ED, he states it lasted several minutes and then reso lved however his second episode was concerning for some pain that radiated to the back of his mid chest. Arrival here to the ED the patient is hypertensive at 153/105, he is otherwise hemodynamically stable and saturating well on room air. 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 Patient states the pain has been intermittent, heaviness in his chest that radiated to his back. Troponin is negative x1 here in the ED, EKG does not show any acute ischemic changes. CT angiography of the chest was ordered and official read is pending. On my reassessment the patient states he still does have some mild chest discomfort and right upper back discomfort. He does have multiple risk factors for ACS including obesity, family history, history of smoking, hypertension, hyperlipidemia, diabetes, I feel that he should be admitted for ACS rule out and likely stress testing. Patient is in agreement to this plan. COVID-19 test is ordered and pending. [facility] hospitalist service was consulted for admission and I did discuss the case with the on-call hospitalist, Dr. Duncan. Patient was admitted in stable condition. Diagnosis: 1. Chest pain, acute 2. Hypertension 3. History of hyperlipidemia 4. History of diabetes 5. History of tobacco abuse 6. Obesity 7. Family history of coronary artery disease Disposition: Admission Segundo Encinas DO Emergency Medicine Past Med/Surg History Medical History (Updated 11/16/21 @ 05:10 by Segundo Encinas DO) Anxiety no meds Hypertension Kidney stones Osteoarthritis Sleep apnea no device--scheduled for a sleep study 11/08/18 Surgical History History of surgical removal of pilonidal cyst History of wisdom tooth extraction Status post debridement of bone spur right heel Family History Father Family history of diabetes mellitus Uncle Family history of diabetes mellitus Other No family history of adverse response to anesthesia Social History Smoking Status: Former smoker Second Hand Exposure: No; Hx Alcohol Use: Yes Alcohol type: wine Hx Substance Use: No Preferred Language: Yakut Communication Ability: Effective Scheduling Administrator Required: No Beliefs That Will Affect Care: None Current Living Situation: Spouse Feels Safe at Home: Yes Assistive Devices: None Allergies Allergies Allergy/AdvReac Type Severity Reaction Status Date / Time ibuprofen Allergy made Verified 06/02/20 18:54 kidneys bleed bandaide AdvReac red Uncoded 06/02/20 18:49 irritated skin Home Meds Home Medications Medication Instructions Recorded Confirmed acetaminophen 500 mg tablet 1,000 mg PO Q6H PRN Pain 11/06/18 06/02/20 chlorthalidone 25 mg tablet 12.5 mg PO QAM 06/02/20 06/02/20 Previous Rx's Medication Instructions Recorded aspirin 81 mg tablet,delayed 81 mg PO QAM 30 days #30 tabs 06/03/20 release potassium chloride 20 mEq 20 meq PO DAILY 30 days #30 tabs 06/03/20 tablet,extended release Results & Data (ED) Vital Signs Vital Signs - 24 hr 11/16/21 02:44 11/16/21 03:08 11/16/21 03:02 Temperature 36.5 C Temperature Source Temporal Artery Scan Pulse Rate 75 73 Respiratory Rate 18 18 Respiratory Effort / Characteristics Non-Labored Spontaneous Respiratory Depth Normal Blood Pressure 153/105 H 146/93 H Blood Pressure Mean 121 110 Pulse Oximetry 98 96 96 Oxygen Delivery Method Room Air Sepsis New/Unexplained Change in Mental Status N/A Sepsis Action Taken by Nursing No Action Required 11/16/21 03:30 11/16/21 04:00 Temperature Temperature Source Pulse Rate 71 71 Respiratory Rate 20 18 Respiratory Effort / Characteristics Respiratory Depth Blood Pressure 147/104 H 149/101 H Blood Pressure Mean 118 117 Pulse Oximetry 99 100 Oxygen Delivery Method Sepsis New/Unexplained Change in Mental Status Sepsis Action Taken by Nursing Laboratory Data Result diagrams: 11/16/21 03:00 11/16/21 03:00 Lab Results 11/16/21 11/16/21 11/16/21 Range/Units 03:00 03:00 03:00 WBC 6.89 (4.8-10.8) K/ul RBC 4.34 L (4.63-6.08) M/uL Hgb 13.2 L (14.0-18.0) g/dl Hct 39.6 L (40.1-51.0) % MCV 91.2 (80.0-100.0) fL MCH 30.4 (25.0-34.0) pg MCHC 33.3 (32.0-36.0) g/dL RDW Std Deviation 40.4 (36.4-46.3) fL RDW Coeff of Shelby 12.1 (11.5-14.5) % Plt Count 262 (130-400) K/uL MPV 8.6 L (9.4-12.4) fL Immature Gran % (Auto) 0.6 % Neut % (Auto) 35.6 % Lymph % (Auto) 48.6 % Whitman % (Auto) 10.7 % Eos % (Auto) 4.1 % Baso % (Auto) 0.4 % Neut # (Auto) 2.45 (1.4-6.5) K/uL Lymph # (Auto) 3.35 (1.2-3.4) K/uL Whitman # (Auto) 0.74 (0.24-0.82) K/uL Eos # (Auto) 0.28 (0-0.50) K/uL Baso # (Auto) 0.03 (0-0.2) K/uL Immature Gran # (Auto) 0.04 H (0.00-0.02) K/uL PT 11.3 (9.0-12.0) Seconds INR 1.1 (0.9-1.1) APTT 28.9 (21.0-31.0) Seconds PTT Ratio 1.1 Sodium 139 (136-145) mmol/L Potassium 4.1 (3.5-5.1) mmol/L Chloride 107 (98-107) mmol/L Carbon Dioxide 28 (21-32) mmol/L Anion Gap 4 (3-11) BUN 16 (6-23) mg/dl Creatinine 0.94 (0.6-1.4) mg/dl Est Cr Clr Drug Dosing 116.6 ml/min Est GFR ( Amer) 106.9 ml/min Est GFR (Non-Af Amer) 92.2 ml/min BUN/Creatinine Ratio 17.0 (10-20) Glucose 88 (70-99(Fasting)) mg/dl Calcium 9.0 (8.5-10.1) mg/dl Total Bilirubin 0.5 (0.2-1.0) mg/dl AST 24 (13-39) U/L ALT 19 (7-52) U/L Alkaline Phosphatase 77 (34-104) U/L Troponin I High Sens 3.5 (0-20) pg/ml Total Protein 7.1 (6.0-8.3) gm/dl Albumin 4.1 (3.4-5.0) gm/dl Globulin 3.0 (2.5-4.0) gm/dl Albumin/Globulin Ratio 1.4 (0.9-2) Lipase 21 (11-82) U/L / Range/Units 04:30 WBC (4.8-10.8) K/ul RBC (4.63-6.08) M/uL Hgb (14.0-18.0) g/dl Hct (40.1-51.0) % MCV (80.0-100.0) fL MCH (25.0-34.0) pg MCHC (32.0-36.0) g/dL RDW Std Deviation (36.4-46.3) fL RDW Coeff of Shelby (11.5-14.5) % Plt Count (130-400) K/uL MPV (9.4-12.4) fL Immature Gran % (Auto) % Neut % (Auto) % Lymph % (Auto) % Whitman % (Auto) % Eos % (Auto) % Baso % (Auto) % Neut # (Auto) (1.4-6.5) K/uL Lymph # (Auto) (1.2-3.4) K/uL Whitman # (Auto) (0.24-0.82) K/uL Eos # (Auto) (0-0.50) K/uL Baso # (Auto) (0-0.2) K/uL Immature Gran # (Auto) (0.00-0.02) K/uL PT (9.0-12.0) Seconds INR (0.9-1.1) APTT (21.0-31.0) Seconds PTT Ratio Sodium (136-145) mmol/L Potassium (3.5-5.1) mmol/L Chloride (98-107) mmol/L Carbon Dioxide (21-32) mmol/L Anion Gap (3-11) BUN (6-23) mg/dl Creatinine (0.6-1.4) mg/dl Est Cr Clr Drug Dosing ml/min Est GFR ( Amer) ml/min Est GFR (Non-Af Amer) ml/min BUN/Creatinine Ratio (10-20) Glucose (70-99(Fasting)) mg/dl Calcium (8.5-10.1) mg/dl Total Bilirubin (0.2-1.0) mg/dl AST (13-39) U/L ALT (7-52) U/L Alkaline Phosphatase (34-104) U/L Troponin I High Sens 5.1 (0-20) pg/ml Total Protein (6.0-8.3) gm/dl Albumin (3.4-5.0) gm/dl Globulin (2.5-4.0) gm/dl Albumin/Globulin Ratio (0.9-2) Lipase (11-82) U/L Administered Medications Discontinued Medications Aspirin (Aspirin Chew 324 Mg) 324 mg PO NOW STA Stop: 11/16/21 05:09 Last Admin: 11/16/21 05:14 Dose: 324 mg Documented By: ERNIE Sodium Chloride (Nss) 500 mls @ 999 mls/hr IV .Q31M STA Stop: 11/16/21 03:28 Last Infusion: 11/16/21 03:35 Dose: 0 mls/hr Documented By: Admin: 11/16/21 03:06 Dose: 999 mls/hr Documented By: RISHABH Ioversol (Optiray 320 125ml) 125 ml IV ONCE ONE Stop: 11/16/21 03:59 Last Admin: 11/16/21 03:59 Dose: 110 ml Documented By: RAO Discharge Plan Visit Data Chief Complaint: Chest Pain Stated Complaint: CHEST PAIN,EARS RINGING,BACK PAIN,CHEST HEAVYNESS ED Provider: Segundo Encinas Discharge Problem: Chest pain Forms Stand Alone Forms: [facility] Prescriptions Prescriptions: No Action acetaminophen 500 mg Tablet 1,000 mg PO Q6H PRN (Reason: Pain) chlorthalidone 25 mg tablet 12.5 mg PO QAM aspirin 81 mg Tablet,Delayed Release (Dr/Ec) 81 mg PO QAM 30 Days Qty: 30 3RF potassium chloride 20 mEq tablet extended release 20 meq PO DAILY 30 Days Qty: 30 3RF Referrals Referrals: Doe Goledn DO [Outside Practitioners] - : Chest pain Qualifiers: Chest pain type: unspecified Qualified Code(s): R07.9 - Chest pain, unspecified
[2021-11-16 03:12] LABS: Basophils # (auto) 0.03 K/uL (0-0.2); Basophils % (auto) 0.4 %; Eosinophils # (auto) 0.28 K/uL (0-0.50); Eosinophils % (auto) 4.1 %; Hematocrit (blood only) 39.6 % (40.1-51.0); Hemoglobin 13.2 g/dl (14.0-18.0); Immature Granulocytes # (auto) 0.04 K/uL (0.00-0.02); Immature Granulocytes % (auto) 0.6 %; Lymphocytes # (auto) 3.35 K/uL (1.2-3.4); Lymphocytes % (auto) 48.6 %; Mean Corpuscular Hemoglobin 30.4 pg (25.0-34.0); Mean Corpuscular Hgb Conc 33.3 g/dL (32.0-36.0); Mean Corpuscular Volume 91.2 fL (80.0-100.0); Mean Platelet Volume 8.6 fL (9.4-12.4); Monocytes # (auto) 0.74 K/uL (0.24-0.82); Monocytes % (auto) 10.7 %; Neutrophils # (auto) 2.45 K/uL (1.4-6.5); Neutrophils % (auto) 35.6 %; Platelet Count 262 K/uL (130-400); RDW Coefficient of Variation 12.1 % (11.5-14.5); RDW Standard Deviation 40.4 fL (36.4-46.3); Red Blood Count 4.34 M/uL (4.63-6.08); White Blood Count 6.89 K/ul (4.8-10.8)
[2021-11-16 03:27] LABS: INR 1.1 (0.9-1.1); Partial Thromboplastin Ratio 1.1; Partial Thromboplastin Time 28.9 Seconds (21.0-31.0); Prothrombin Time 11.3 Seconds (9.0-12.0)
[2021-11-16 03:32] LABS: Albumin Globulin Ratio 1.4 (0.9-2); Albumin Level 4.1 gm/dl (3.4-5.0); Bilirubin,Total 0.5 mg/dl (0.2-1.0); Creatinine Clr Calc Pharmacy 116.6 ml/min; Est GFR (African American) 106.9 ml/min; Est GFR (Non-African American) 92.2 ml/min; Potassium 4.1 mmol/L (3.5-5.1); Total Protein 7.1 gm/dl (6.0-8.3)
[2021-11-16 03:36] LABS: Troponin I High Sensitivity 3.5 pg/ml (0-20)
[2021-11-16] MEDS ORDERED: OPTIRAY 320 125ml IV ONE (03:58)
[2021-11-16] MEDS ORDERED: ASPIRIN CHEW 324 MG PO STA (05:08)
--- NOTE | 2021-11-16 07:14 | CT Scan Report ---
CT angio chest PE protocol CLINICAL HISTORY: Chest Pain, eval for PE TECHNIQUE: Multidetector row helical CT of the chest was performed with angiographic protocol. Palomino l and sagittal reformations were obtained. Coronal and sagittal MIPS were obtained from the axial christopher a set and were submitted for review. Automated dose lowering techniques and/or adjustment according to patient size were utilized for this exam. CT DOSE: 786.17 mGy.cm Comparison: Comparison is made to CTA chest 06/02/2020 FINDINGS: Lungs and pleura: Multiple stable nodules are seen measuring up to 4 mm in the right lower lobe (seri es 4 image 145). Atelectasis is noted. Heart and pericardium: Heart size is normal. No pericardial effusion. Vessels: No evidence of pulmonary embolism. Mediastinum and roly: Subcentimeter lymph nodes are seen. Chest wall and lower neck: Unremarkable. Abdomen: A right hepatic cyst measures 6 mm. Bones: Degenerative changes in the thoracic spine. IMPRESSION: No evidence of pulmonary embolism. Stable tiny pulmonary nodules as above. According to Heather solorio, no follow-up is required in low risk patients, in high-risk patients, a 12 month follow-up CT can be optionally performed. ACT 112: Negative or not required by law. Electronically signed by: Aaron Rodriguez M.D. 11/16/2021 7:12 AM
[2021-11-16] MEDS ORDERED: ACETAMINOPHEN 325 MG TAB PO PRN (08:10)
[2021-11-16] MEDS ORDERED: NITROGLYCERIN SL 0.4 MG/TAB TAB SL PRN (08:10)
--- NOTE | 2021-11-16 08:33 | Cardiology Consultation ---
Date of Consultation November 16, 2021 Assessment & Plan (1) Chest pain: (2) Family history of coronary artery disease: (3) Hypertension: (4) SAMANTA (obstructive sleep apnea): (5) Family history of premature coronary artery disease: (6) Dyslipidemia: (7) Prediabetes: Plan Atypical chest discomfort EKG actually improved compared to previous initial trop negative resting images show normal wall motion stress testing was nonischemic without reproduction of chest discomfort no cardiac source for chest discomfort found no further cardiac testing necessary recommend f/u with pcp for further eval ok to d/c to home from cardiac standpoint History of Present Illness Reason for Consultation: chest pain Requesting Physician: Dr. Brooks Attending Physician: Asmita Brooks DO History of Present Illness Mr. Bernstein is a 51 yo male who presented to [facility] ED with complaints of chest discomfort. He states that he went to bed feeling well but awoke in the middle of the night with chest discomfort. He described it as a heaviness across his precordium. He did fall asleep without his CPAP. Denies any associated symptoms. Resolved with asa in ED. Currently without complaint at rest. States that this discomfort is different than previous episode. PMHX: 1. Family history of early CAD 2. Dyslipidemia with an estimated 10 year ASCVD risk of 4.3% (low) 3. HTN - controlled 4. Prediabetes 5. Former tobacco abuse 6. Obesity with SAMANTA - tolerating CPAP Allergies Allergy/AdvReac Type Severity Reaction Status Date / Time ibuprofen Allergy made Verified 06/02/20 18:54 kidneys bleed bandaide AdvReac red Uncoded 06/02/20 18:49 irritated skin Home Medications Medication Instructions Recorded Confirmed Type aspirin 81 mg tablet,delayed 81 mg PO QAM 30 days #30 tabs 06/03/20 11/16/21 Rx release atorvastatin 20 mg tablet 20 mg PO QAM 11/16/21 11/16/21 History dulaglutide 1.5 mg/0.5 mL 1.5 mg subcut WK 11/16/21 11/16/21 History subcutaneous pen injector (Trulicity) losartan 50 mg tablet 50 mg PO QAM 11/16/21 11/16/21 History Patient History Medical History (Updated 11/16/21 @ 08:33 by Fidencio Heath DO) Anxiety no meds Hypertension Kidney stones Osteoarthritis Sleep apnea no device--scheduled for a sleep study 11/08/18 Surgical History History of surgical removal of pilonidal cyst History of wisdom tooth extraction Status post debridement of bone spur right heel Family History Father Family history of diabetes mellitus Uncle Family history of diabetes mellitus Other No family history of adverse response to anesthesia Social History Smoking Status: Former smoker Second Hand Exposure: No; Do You Dip or Chew Tobacco: No; Tobacco Cessation Education Requested by Patient: No Hx Alcohol Use: No Hx Substance Use: No Preferred Language: Tajik Communication Ability: Effective Remotely Piloted Vehicle Controller Required: No Beliefs That Will Affect Care: None Current Living Situation: Spouse Other Information That Helps Us Care for You: No Feels Safe at Home: Yes Safety Concerns: Feels Safe At This Time Assistive Devices: CPAP and Glasses Review of Systems Review of Systems: All systems reviewed & are unremarkable except as noted in HPI & below Physical Exam Physical Exam: General: Awake, alert and oriented x 3. No acute distress. HEENT: Normocephalic, atraumatic. Pupils equal, round and reactive to light and accommodation. Extraocular muscles are intact. Anicteric sclera. Moist mucous membranes. Neck: No JVD. No bruit. Cardiovascular: Regular. Positive S-4. Normal S-1 and S-2. No S-3. No murmurs or rubs. Pulmonary: Clear to auscultation B/L. No rales, rhonchi or wheezing Abdomen: Bowel sounds x 4, soft. No rebound, guarding or tenderness. No organomegaly. Extremities: No clubbing, cyanosis or edema. +2 pedal pulses bilaterally. Skin: Warm and dry. Results & Data ([facility]) Vital Signs (Past 12 Hours) Vital Signs Temp Pulse Resp BP Pulse Ox O2 Del Method 11/16/21 08:11 68 18 124/93 96 Room Air 11/16/21 08:00 68 18 124/93 96 11/16/21 07:30 67 19 133/101 H 95 11/16/21 07:00 67 17 123/91 95 07/19/22 06:30 69 16 140/97 97 11/16/21 06:00 69 16 136/94 95 11/16/21 05:30 67 18 144/92 H 97 11/16/21 04:30 73 16 146/95 H 96 11/16/21 04:00 71 18 149/101 H 100 11/16/21 03:30 71 20 147/104 H 99 11/16/21 03:02 73 18 146/93 H 96 11/16/21 03:08 96 11/16/21 02:44 36.5 C 75 18 153/105 H 98 Room Air (1) Chest pain Chest pain type: unspecified Qualified Code(s): R07.9 - Chest pain, unspecified
[2021-11-16] MEDS ORDERED: LOSARTAN POTASSIUM 50 MG TAB PO SCH (09:00)
[2021-11-16] MEDS ORDERED: ATORVASTATIN 20 MG TAB PO SCH (09:00)
[2021-11-16 09:10] LABS: Estimated Average Glucose 117 mg/dl; Hemoglobin A1C 5.7 % (4.5-5.6)
--- NOTE | 2021-11-16 09:11 | History and Physical Report ---
DATE OF ADMISSION: 11/16/2021. CHIEF COMPLAINT: Chest pain. HISTORY OF PRESENT ILLNESS: This 51-year-old male with past medical history significant for hypertension, diabetes, obstructive sleep apnea, obesity, GERD, history of osteoarthritis, subscapular right shoulder tendinitis, presents with chest pain. The patient says around 10:00 p.m. last night, he had chest discomfort, heavy feeling about 3-4/10 in severity. He went to sleep, but again he woke up around 2:00 a.m. with a similar kind of chest heaviness and he tried to stretch when he started having back pain and also right shoulder , this prompted him to come to the ER. In ER initial workup is unremarkable. Currently, resting comfortably, hemodynamically stable. Still having mild chest discomfort. Denies any headache, no dizziness, no blurred visions, no runny nose. He has some ringing noise in ears. No sore throat. No cough, no fevers. No difficulty swallowing. No nausea, no abdominal pain. Normal bowel and bladder movements. Otherwise, he was ambulating okay before all this happened. The patient says his Trulicity was recently increased last Monday since then he is having loss of appetite and not feeling good and he is attributing his symptoms could be from that. ALLERGIES: IBUPROFEN, BAND-AID. PAST MEDICAL HISTORY: As mentioned above. PAST SURGICAL HISTORY: Diagnostic colonoscopy. MEDICATIONS: The patient is on aspirin 81 mg p.o. daily, atorvastatin 20 mg p.o. daily, Trulicity 1.5 mg subcutaneous weekly, losartan 50 mg p.o. daily. FAMILY HISTORY: Significant for mother has arthritis; father has diabetes, [place]; brother has Parkinson's disease; sister has diabetes. SOCIAL HISTORY: . Quit smoking 2001. Smoked half pack a day for 13 years. No alcohol use. No drug use. REVIEW OF SYSTEMS: As per HPI. Rest of review of systems is negative. PHYSICAL EXAMINATION: GENERAL: The patient is obese, not in acute distress. VITAL SIGNS: Temperature 36.5, pulse 67, respiratory rate 18, blood pressure 144/92, oxygen 97% on room air. HEENT: Pupils equal, round and reactive to light. Oral mucosa moist. NECK: No JVD. No neck masses. CARDIOVASCULAR: S1 and S2 heard. Regular rate and rhythm. No murmur, no gallop. RESPIRATORY SYSTEM: Normal AP diameter. No accessory muscle use. No wheezing, no crackles. ABDOMEN: Soft, bowel sounds present, nontender, no distention. CENTRAL NERVOUS SYSTEM: Alert and oriented. Speech is clear. No facial droop. Obeys simple commands. Moves extremities. EXTREMITIES: No edema, no erythema. LABORATORY DATA: WBC 6.8, hemoglobin 13.2, hematocrit 39.6, platelets 262. PT 11.3, INR 1.1, APTT 28.9. Sodium 139, potassium 4.1, chloride 107, bicarbonate 28, BUN 16, creatinine 0.9, serum glucose of 88, calcium 9, total bilirubin 0.5, AST 24, ALT 19, alkaline phosphatase 77. Troponin I high sensitivity 5.1, lipase 21. IMAGING DATA: CT of the chest results are pending. EKG: Initial EKG when he came in had poor quality interpretation showed accelerated junctional rhythm rate of 70, nonspecific T-wave abnormality. Repeat EKG showed normal sinus rhythm at a rate of 73, no acute ST changes seen. ASSESSMENT AND PLAN: This is a 51-year-old male who presents with chest pain. 1. Chest pain: Rule out acute coronary syndrome. Risk factors of diabetes, high blood pressure, high cholesterol, sleep apnea, obesity, family history. Initial troponin unremarkable.. Initial EKG showed junctional rhythm (poor quality)repeat ekg ok. We will follow serial cardiac enzymes, repeat EKG, echocardiogram. Keep n.p.o. and consult Cardiology in the a.m. Monitor in the tele floor. 2. Diabetes. The patient is on Trulicity. We will place on sliding scale. Follow HbA1c follow the blood sugars. 3. Hyperlipidemia. Continue statin. 3. Hypertension. Continue losartan. 4. Obesity. Needs counseling. 5. Sleep apnea. CPAP at bedtime. 6. Deep venous thrombosis prophylaxis: Sequential compression devices. DISPOSITION: Closely observe in med tele. PT/OT prior to discharge. Social service to help with discharge planning. Level 1 full code. Job ID: [id number] [facility]
[2021-11-16] MEDS ORDERED: INSULIN ASPART PER UNIT SC SCH ×2 (12:00→16:30)
--- NOTE | 2021-11-16 17:11 | Electrocardiogram Report ---
Test Reason : Blood Pressure : / mmHG Vent. Rate : 073 BPM Atrial Rate : 073 BPM P-R Int : 188 ms QRS Dur : 104 ms QT Int : 412 ms P-R-T Axes : 056 011 037 degrees QTc Int : 453 ms Normal sinus rhythm Normal ECG When compared with ECG of 16-NOV-2021 02:52, (unconfirmed) No significant change Confirmed by Sukhdeep Barillas ([id number]) on 11/16/2021 5:11:14 PM Referred By: Thong Clifton Confirmed By:Sukhdeep Barillas
[2021-11-17] MEDS ORDERED: ASPIRIN 81 MG ECTAB PO SCH (09:00)
--- NOTE | 2021-11-20 12:01 | Discharge Summary ---
Date of Service 11/16/21 Admission HPI Per Admitting Provider HISTORY OF PRESENT ILLNESS: This 51-year-old male with past medical history significant for hypertension, diabetes, obstructive sleep apnea, obesity, GERD, history of osteoarthritis, subscapular right shoulder tendinitis, presents with chest pain. The patient says around 10:00 p.m. last night, he had chest discomfort, heavy feeling about 3-4/10 in severity. He went to sleep, but again he woke up around 2:00 a.m. with a similar kind of chest heaviness and he tried to stretch when he started having back pain and also right shoulder , this prompted him to come to the ER. In ER initial workup is unremarkable. Currently, resting comfortably, hemodynamically stable. Still having mild chest discomfort. Denies any headache, no dizziness, no blurred visions, no runny nose. He has some ringing noise in ears. No sore throat. No cough, no fevers. No difficulty swallowing. No nausea, no abdominal pain. Normal bowel and bladder movements. Otherwise, he was ambulating okay before all this happened. The patient says his Trulicity was recently increased last Monday since then he is having loss of appetite and not feeling good and he is attributing his symptoms could be from that. Admission Exam Per Admitting Provider PHYSICAL EXAMINATION: GENERAL: The patient is obese, not in acute distress. VITAL SIGNS: Temperature 36.5, pulse 67, respiratory rate 18, blood pressure 144/92, oxygen 97% on room air. HEENT: Pupils equal, round and reactive to light. Oral mucosa moist. NECK: No JVD. No neck masses. CARDIOVASCULAR: S1 and S2 heard. Regular rate and rhythm. No murmur, no gallop. RESPIRATORY SYSTEM: Normal AP diameter. No accessory muscle use. No wheezing, no crackles. ABDOMEN: Soft, bowel sounds present, nontender, no distention. CENTRAL NERVOUS SYSTEM: Alert and oriented. Speech is clear. No facial droop. Obeys simple commands. Moves extremities. EXTREMITIES: No edema, no erythema. Principal Diagnosis chest pain Discharge Exam CONSTITUTIONAL: WNWD, vitals as above, generally well-appearing, NAD EYES: normal conjunctivae, no scleral icterus, ENT: external ear and nose normal, MMM NECK: trachea midline, RESPIRATORY: clear to auscultation bilaterally, no crackles, rales or wheezes, normal respiratory effort CARDIOVASCULAR: regular rate and rhythm, S1 and 2 heard without murmurs, gallops or rubs, no JVD, no peripheral edema, CHEST: inspection of chest was normal GASTROINTESTINAL: soft, nontender, ND, no guarding MUSCULOSKELETAL: strength 5/5 throughout, head is normocephalic and atraumatic SKIN: warm and dry, NEUROLOGIC: CN 2-12 grossly intact, no sensory deficit, normal cognition, normal speech, no tremor PSYCHIATRIC: alert cooperative and oriented to person, place and time. Discharge Data Allergies Allergy/AdvReac Type Severity Reaction Status Date / Time ibuprofen Allergy made Verified 06/02/20 18:54 kidneys bleed bandaide AdvReac red Uncoded 06/02/20 18:49 irritated skin Consultations 11/16/21 05:16 ED Decision to Admit Stat 11/16/21 08:10 Consult Cardiology Routine Ordered Studies 11/16/21 02:58 CT angio chest PE protocol Urgent Hospital Course (1) Chest pain: Plan 51-year-old man was admitted for atypical chest discomfort. EKG was nonischemic initial troponin was negative followed by serial negative troponins overnight. Resting images revealed normal wall motion and cardiac stress testing was nonischemic without reproduction of chest discomfort. There was no cardiac source identified for chest discomfort and no further cardiac testing is necessary. He was discharged in stable condition with close primary care follow-up recommended in order to continue to investigate his cause of chest pain if it recurs. Total Time Total Time Spent Total Time Spent (In Minutes): 60 Discharge Plan Discharge Items Patient Disposition: Home - Self-Care Reason For Visit: CHEST PAIN Discharge Diagnosis: Atypical chest pain Condition on Discharge: Good Activity: Resume your previous activity Non-emergency contact: Primary Care Provider Call non-emergency contact if: you have any medication questions, your symptoms worsen, your pain is not controlled, your pain is worsening, your pain is unusual for you, your pain is concerning for you and you have a fever Follow-up/Referrals: Mary Villatoro PA-C [Physician Chain Offbearer] - (Date & Time 11/24/2021 11:30 AM Provider Mary Villatoro PA-C Department Cardiology, [facility] ) Ramon Bolton DO [Primary Care Provider] - (Date & Time 11/23/2021 11:00 AM Provider Ramon Bolton DO Department Family Practice [facility] ) Diet: Carb Consistent or DM2 Addtl Attending Provider Instructions: Please take all medications as instructed on discharge list below. Please followup with your primary care provider within one week of hospital discharge. It was a pleasure taking care of you! Please call if you have any questions or problems. You can reach a [facility] hospitalist on duty at 24 hours a day by calling [phone]. Take care of yourself. Asmita Brooks DO [facility] P[facility] Studies at Discharge: No Stand-Alone Forms: My [facility] Medications and DC Order Prescriptions: Continued aspirin 81 mg Tablet,Delayed Release (Dr/Ec) 81 mg PO QAM 30 Days Qty: 30 3RF losartan 50 mg tablet 50 mg PO QAM atorvastatin 20 mg tablet 20 mg PO QAM Trulicity 1.5 mg/0.5 mL pen injector 1.5 mg SUBCUT WK Rx Instructions: Monday Discharge Orders: Discharge Order (Routine); Ordered 11/16/21 Ordered By: Asmita Brooks Admission Data Admit Date/Time: 11/16/21 05:56 Attending Provider: Asmita Brooks Admit Provider: Asmita Brooks Primary Care Provider: Ramon Bolton Other Providers: Rafael Duncan ; Fidencio Heath ; Saqib Nichols ; Blaine Cottrell ; Thong Clifton ; NickEmmanuel drake ; Segundo Gomez ; Mary Villatoro ; Shanice Nieves ; Nidia Handy ; Leonid Johnston Other Interventions: Discharge Summary Assessment (RN) Last Done: 11/16/21 15:32
== END 2021-11-16 15:17 | disposition home or self-care (01) ==
LOC: ED 02:40 → EDINP 02:40